=== PATIENT | female | born 1955 | race Caucasian/White ===

== ENCOUNTER 2017-12-13 16:44 | Emergency (ER) | payer BC ==
--- NOTE | 2017-12-13 16:59 | Emergency Department Record ---
History of Present Illness - General Chief Complaint: Dizziness Stated Complaint: HEAT EXHAUSTION, DIZZY Time Seen by Provider: 12/13/17 16:52 Source: Patient Mode of Arrival: Wheelchair Limitations: No limitations - History of Present Illness Initial Comments: The patient is here due to developing lightheadedness about 20 minutes prior to presenting to the ER. The patient was outside in the extreme heat for about 10- 15 minutes and was standing and then suddenly felt weak with lightheadedness and felt like she was going to pass out. She did not fall or hurt herself and also denied any CP or SOB or GARCIA. Her family then brought her to the ER for treatment. Presently she is feeling better. The patient denies any recent illnesses, fever, chills, vomiting, diarrhea, or AP. She presently is being treated for Lung CA and is receiving weekly chemo. Complaint: Lightheadedness Onset/Timin -: Minutes(s) Timing: Sudden onset Description: Lightheadedness, Nausea, Near-syncope History of Same: No History of Trauma: No Improves With: Nothing Worsens With: Nothing - [place] Coma Scale Eye Response: (4) Open spontaneously Motor Response: (6) Obeys commands Verbal Response: (5) Oriented [place] Total: 15 - Related Data Home Medications Medication Instructions Recorded Confirmed Last Taken Albuterol Sulfate [Proair Hfa] 1 - 2 puff IH .EVERY 4-6 HOURS PRN 12/13/1712/13 Unknown Aspirin Chewable 81 mg PO DAILY 12/13/17 12/13/17 Unknown Folic Acid 1 mg PO DAILY 12/13/17 12/13/17 Unknown Hydrochlorothiazide [Hctz] 12.5 mg PO DAILY 12/13/17 12/13/17 Unknown Naproxen Sodium [Aleve] 220 mg PO ASDIR 12/13/17 12/13/17 Unknown Ondansetron [Zofran Odt] 8 mg PO ASDIR 12/13/17 12/13/17 Unknown Oxycodone HCl/Acetaminophen 1 tab PO Q6H PRN 12/13/17 12/13/17 Unknown [Oxycodone/Acetaminophen 5mg/325mg] Prochlorperazine Maleate 10 mg PO ASDIR 12/13/17 12/13/17 Unknown [Compazine] Tiotropium Br/Olodaterol HCl 4 gm IH ASDIR 12/13/17 12/13/17 Unknown [Stiolto Respimat Inhal [place]] Previous Rx's Medication Instructions Recorded Potassium Chloride [Klor-Con] 20 meq PO DAILY #14 [email or web address] 12/13/17 Allergies Allergy/AdvReac Type Severity Reaction Status Date / Time iodine [IODINE] Allergy Severe HYPERSENSIT Verified 12/13/17 16:53 IVITY propoxyphene napsylate Allergy Severe HYPERSENSIT Verified 12/13/17 16:53 [From DARVOCET-N 100] IVITY Travel Screening - Travel/Exposure Within Last 30 Days Have you traveled within the last 30 days?: No Review of Systems Constitutional: Denies: Chills, Fever Eyes: Denies: Eye discharge ENT: Denies: Congestion Respiratory: Denies: Cough, Dyspnea Past Medical History - SOCIAL HISTORY Smoking Status: Former smoker Alcohol Use: None Drug Use: None - RESPIRATORY Hx Respiratory Disorders: Yes Comment:: lung CA - CARDIOVASCULAR Hx Cardio Disorders: Yes Hx Cardiac Cath: Yes Hx Hypertension: Yes Comment:: Anerysum - NEURO Hx Neuro Disorders: No - GI Hx GI Disorders: No - Hx Genitourinary Disorders: No - ENDOCRINE Hx Endocrine Disorders: No - MUSCULOSKELETAL Hx Musculoskeletal Disorders: Yes - PSYCH Hx Psych Problems: Yes Hx Anxiety: Yes - HEMATOLOGY/ONCOLOGY Hx Hematology/Oncology Disorders: Yes Hx Cancer: Yes (lung) Hx Chemotherapy: Yes Family Medical History Any Significant Family History?: Yes Hx Resp Disorders: Mother Physical Exam - General General Appearance: Alert, Oriented x3, Cooperative, No acute distress - Head Head exam: Atraumatic, Normocephalic, Normal inspection - Eye Eye exam: Normal appearance, PERRL - ENT Throat exam: Normal inspection. negative: Tonsillar erythema, Tonsillar exudate - Neck Neck exam: Normal inspection, Full ROM. negative: Tenderness - Respiratory Respiratory exam: Normal lung sounds bilaterally. negative: Respiratory distress - Cardiovascular Cardiovascular Exam: Regular rate, Normal rhythm, Normal heart sounds - GI/Abdominal GI/Abdominal exam: Soft, Normal bowel sounds. negative: Tenderness - Extremities Extremities exam: Normal inspection, Full ROM, Normal capillary refill. negative: Tenderness - Neurological Neurological exam: Alert, Normal gait. 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 She is resting comfortably in no pain or discomfort and is having no dizziness. I did explain to the patient that her workup is mostly normal except for some minor lab abnormalities and a mildly low potassium. I did recommend a short stay in the ER for further monitoring and repeat cardiac enzymes but the patient is refusing. The patient clearly wants to leave right now and is no longer willing to stay in the ER. I explained by leaving she could go home and have a stroke, [place], become disabled and . The patient understands and accepts the risks. Presently she has proper decision making capacity and understands we cannot be held liable for not monitoring the patient further. She is to see her doctors later this week for recheck and to return to the ER for any worsening symptoms. 12/13/17 18:07 Medical Decision Making - Data Complexity MDM Data: Labs Ordered and/or Reviewed, EKG Ordered and/or Reviewed - Lab Data Result diagrams: 12/13/17 16:57 12/13/17 16:57 - EKG Data -: EKG Interpreted by Me EKG: No Acute Changes, Normal EKG Disposition Disposition: Discharge Clinical Impression: Near syncope Disposition: Home, Self-Care Condition: (2) Stable Instructions: Dizziness (ED) Additional Instructions: Please drink plenty of fluids and add the oral potassium as directed. Please see your family doctor or Oncologist later this week for recheck. Return to the ER for any worsening symptoms. Prescriptions: Potassium Chloride [Klor-Con] 20 meq PO DAILY #14 [email or web address] Forms: Patient Portal Access Time of Disposition: 18:06 Quality - Quality Measures Quality Measures: N/A - Blood Pressure Screening View Details: Yes Does Patient Have Any of the Following: No Blood Pressure Classification: Normal BP Reading Systolic Measurement: 104 Diastolic Measurement: 75 Screening for High Blood Pressure: < Normal BP, F/U Not Required > [G8783]
[2017-12-13] MEDS: ONDANSETRON HCL IV 4 MG/2 ML VIAL IVP ONE (17:14)
[2017-12-13] MEDS: 0.9 % SODIUM CHLORIDE 1,000 ML BAG IV ONE (17:15)
[2017-12-13 17:19] LABS: HEMATOCRIT 29.9 % (35.0-47.0); HEMOGLOBIN 10.4 gm/dl (11.6-16.0); MEAN CELL VOLUME 98.4 fl (81-97); MEAN CORPUSCULAR HEMOGLOBIN 34.2 pg (27-33); MEAN CORPUSCULAR HGB CONC 34.8 g/dl (32-36); MEAN PLATELET VOLUME 10.2 fl (7.4-10.4); PLATELET COUNT 80 K/uL (130-400); RED BLOOD COUNT 3.04 M/uL (3.80-5.40); RED CELL DISTRIBUTION WIDTH 17.8 % (11.5-14.5); WHITE BLOOD COUNT W/O DIFF 5.8 K/uL (4.2-12.2)
[2017-12-13 17:31] LABS: BLOOD UREA NITROGEN 16 mg/dL (8-23); CREATININE 0.7 mg/dL (0.5-0.9); EST GLOMERULAR FILTRATION RATE > 60 mL/min; TOTAL PROTEIN 7.5 g/dL (6.6-8.7)
[2017-12-13 17:33] LABS: GLUCOSE,RANDOM 106 mg/dL (74-109)
[2017-12-13 17:36] LABS: ALB/GLOB RATIO 1.1 (1.1-1.8); ALKALINE PHOSPHATASE 100 U/L (35-104); ALT/SGPT 23 U/L (<33); AST/SGOT 30 U/L (10.0-35.0); CREATINE PHOSPHOKINASE 57 U/L (26-192)
[2017-12-13 17:38] LABS: CKMB < 1.0 ng/mL (<3.77)
[2017-12-13] MEDS: POTASSIUM CHLORIDE 20 MEQ TABLET PO ONE (17:44)
[2017-12-13] MEDS ORDERED: 0.9 % SODIUM CHLORIDE 1,000 ML BAG IV ONE (18:03)
== END 2017-12-13 18:16 | disposition home or self-care (01) ==
LOC: ER 16:44
DX: R55 Syncope and collapse (principal); R42 Dizziness and giddiness; Z87.891 Personal history of nicotine dependence; I10 Essential (primary) hypertension; E87.6 Hypokalemia
CPT/HCPCS: 80053; 82550; 82553; 84484; 85027; 93005; 93010; 96361; 96374; 99284; J2405; J7030

== ENCOUNTER 2018-03-03 15:47 | Emergency (ER) | payer BC ==
--- NOTE | 2018-03-03 16:09 | Emergency Department Record ---
History of Present Illness - General Chief Complaint: Bloody Sputum Stated Complaint: BLEEDING FROM HER LUNGS, CANCER Time Seen by Provider: 03/03/18 16:04 Source: Patient Mode of Arrival: Ambulatory Limitations: No limitations - History of Present Illness Initial comments: The patient is here due to coughing up blood today. She has a hx of a chronic cough due to Lung CA and is presently in the process of treatment for it. She has just finished her 11th XRT treatment for it and is going to start her 2nd round of chemo next week. The patient has had a chronic cough but it has been slightly worse recently. Now today she has had some blood sputum at times. There is no SOB, CHAPIS, CP or fever. Onset/Timin -: Days(s) - Related Data Previous Rx's Medication Instructions Recorded Potassium Chloride [Klor-Con] 20 meq PO DAILY #14 tab.prt.sr 12/13/17 Doxycycline Monohydrate [Mondoxyne 100 mg PO BID #14 capsule 03/03/18 Nl] Allergies Allergy/AdvReac Type Severity Reaction Status Date / Time iodine [IODINE] Allergy Severe HYPERSENSIT Verified 03/03/18 16:01 IVITY propoxyphene napsylate Allergy Severe HYPERSENSIT Verified 03/03/18 16:01 [From DARVOCET-N 100] IVITY Travel Screening - Travel/Exposure Within Last 30 Days Have you traveled within the last 30 days?: Yes Location Detail:: [place] - Travel/Exposure Within Last Year Have you traveled outside the [place] in the last year?: No - Additonal Travel Details Have you been exposed to anyone with a communicable illness?: No - Travel Symptoms Symptom Screening: None Review of Systems Constitutional: Denies: Chills, Fever Eyes: Denies: Eye discharge ENT: Denies: Congestion Respiratory: Reports: Cough. Denies: Dyspnea Cardiovascular: Denies: Arrhythmia, Chest pain Endocrine: Reports: Fatigue Gastrointestinal: Denies: Abdominal pain Genitourinary: Denies: Dysuria Musculoskeletal: Denies: Back pain Skin: Denies: Bruising Past Medical History - SOCIAL HISTORY Smoking Status: Current every day smoker Alcohol Use: None Drug Use: None - RESPIRATORY Hx Respiratory Disorders: Yes Comment:: lung CA - CARDIOVASCULAR Hx Cardio Disorders: Yes Hx Cardiac Cath: Yes Hx Hypertension: Yes Comment:: Anerysum - NEURO Hx Neuro Disorders: No - GI Hx GI Disorders: No - Hx Genitourinary Disorders: No - ENDOCRINE Hx Endocrine Disorders: No - MUSCULOSKELETAL Hx Musculoskeletal Disorders: Yes - PSYCH Hx Psych Problems: Yes Hx Anxiety: Yes - HEMATOLOGY/ONCOLOGY Hx Hematology/Oncology Disorders: Yes Hx Cancer: Yes (lung) Hx Chemotherapy: Yes Family Medical History Any Significant Family History?: No Hx Resp Disorders: Mother Physical Exam - General General Appearance: Alert, Oriented x3, Cooperative, No acute distress - Head Head exam: Atraumatic, Normocephalic, Normal inspection - Eye Eye exam: Normal appearance, PERRL, EOMI - ENT Throat exam: Normal inspection. negative: Tonsillar erythema, Tonsillar exudate - Neck Neck exam: Normal inspection, Full ROM. negative: Tenderness - Respiratory Respiratory exam: Normal lung sounds bilaterally. negative: Respiratory distress - Cardiovascular Cardiovascular Exam: Regular rate, Normal rhythm, Normal heart sounds - GI/Abdominal GI/Abdominal exam: Soft, Normal bowel sounds. negative: Tenderness - Extremities Extremities exam: Normal inspection, Full ROM, Normal capillary refill. negative: Tenderness - Neurological Neurological exam: Alert. negative: Motor sensory deficit Course Vital Signs 03/03/18 15:53 Temperature 97.8 F Pulse Rate 90 Respiratory 20 Rate Blood Pressure 108/74 Pulse Ox 99 - Reevaluation(s) Reevaluation #1: The patient is doing extremely well in the ED. She has not coughed any blood up and is resting comfortably with no Cp, SOB, or CHAPIS. Her CXR does still demonstrate bilateral tumors but they are improved from the last xray. I did discuss the case with Dr. Jey Avitia who is addiction therapist for the patient's Oncologist Dr. Clark. He and I both believe the slight blood in the sputum is due to the recent XRT and the multiple tumors. Since the patient is having NO CP, SOB, or CHAPIS and has a normal RA biox it is hard to believe she could be having any issues like a PE. We will place the patient on an oral Abx and she is to F/U with her Oncologist for further issues. 03/03/18 17:27 Medical Decision Making - Data Complexity MDM Data: Labs Ordered and/or Reviewed, X-Ray Ordered and/or Reviewed - Lab Data Result diagrams: 03/03/18 16:13 09/06/18 16:26 - Radiology Data Radiology results: Report reviewed (CXR: Bilateral lung tumors but improved since last CXR. Neg for acute process.) Disposition Disposition: Discharge Clinical Impression: Lung cancer Qualifiers: Laterality: unspecified laterality Lung location: unspecified part of lung Qualified Code(s): C34.90 - Malignant neoplasm of unspecified part of unspecified bronchus or lung Disposition: Home, Self-Care Condition: (2) Stable Instructions: Hemoptysis (ED) Additional Instructions: Please continue your regular medicines and please take the Doxycycline as directed. Please follow up with Dr. Clakr for any further issues. Please return to the ER for any worsening symptoms, pain, fever, or shortness of breath. Prescriptions: Doxycycline Monohydrate [Mondoxyne Nl] 100 mg PO BID #14 capsule Forms: Patient Portal Access Time of Disposition: 17:31 Quality - Quality Measures Quality Measures: N/A - Blood Pressure Screening View Details: Yes Does Patient Have Any of the Following: No Blood Pressure Classification: Normal BP Reading Systolic Measurement: 116 Diastolic Measurement: 68 Screening for High Blood Pressure: < Normal BP, F/U Not Required > [G8783]
[2018-03-03 16:32] LABS: HEMATOCRIT 32.6 % (35.0-47.0); HEMOGLOBIN 10.6 gm/dl (11.6-16.0); MEAN CELL VOLUME 107.9 fl (81-97); MEAN CORPUSCULAR HGB CONC 32.5 g/dl (32-36); MEAN PLATELET VOLUME 9.2 fl (7.4-10.4); PLATELET COUNT 185 K/uL (130-400); RED BLOOD COUNT 3.02 M/uL (3.80-5.40); RED CELL DISTRIBUTION WIDTH 15.7 % (11.5-14.5); WHITE BLOOD COUNT W/O DIFF 5.9 K/uL (4.2-12.2)
[2018-03-03 16:42] LABS: BLOOD UREA NITROGEN 17 mg/dL (8-23); CREATININE 0.6 mg/dL (0.5-0.9); EST GLOMERULAR FILTRATION RATE > 60 mL/min
[2018-03-03 16:45] LABS: GLUCOSE,RANDOM 115 mg/dL (74-109); PROTHROMBIN TIME (PATIENT) 10.2 SECONDS (9.5-12.1)
[2018-03-03 16:47] LABS: PLATELET ESTIMATE NORMAL (NORMAL)
== END 2018-03-03 17:41 | disposition home or self-care (01) ==
LOC: ER 15:47
DX: C34.90 Malignant neoplasm of unspecified part of unspecified bronchus or lung (principal); R04.2 Hemoptysis; R13.10 Dysphagia, unspecified; I10 Essential (primary) hypertension; F17.210 Nicotine dependence, cigarettes, uncomplicated
CPT/HCPCS: 71046; 80048; 85027; 85610; 85730; 99283; 99284

== ENCOUNTER 2018-11-15 08:37 | Emergency (ER) | payer MEDICARE, BC ==
[2018-11-15] MEDS ORDERED: ASPIRIN 81 MG CHEWABLE TABLET PO ONE (08:45)
[2018-11-15] MEDS ORDERED: NITROGLYCERIN 0.4MG SL TABLET #25 BTL SL PRN (08:45)
[2018-11-15 09:01] LABS: ABSOLUTE NEUTROPHIL COUNT 5.25; BASO % 0.4 % (0-6); EOS % 0.8 % (0-6); GRAN % 72.1 % (47-80); HEMATOCRIT 36.7 % (35.0-47.0); HEMOGLOBIN 12.4 gm/dl (11.6-16.0); LYMPH % 15.2 % (16-45); MEAN CELL VOLUME 96.3 fl (81-97); MEAN CORPUSCULAR HEMOGLOBIN 32.5 pg (27-33); MEAN CORPUSCULAR HGB CONC 33.8 g/dl (32-36); MEAN PLATELET VOLUME 8.7 fl (7.4-10.4); MONO % 11.5 % (0-9); PLATELET COUNT 311 K/uL (130-400); RED BLOOD COUNT 3.81 M/uL (3.80-5.40); RED CELL DISTRIBUTION WIDTH 16.3 % (11.5-14.5); WHITE BLOOD COUNT W/O DIFF 7.3 K/uL (4.2-12.2)
[2018-11-15 09:10] LABS: BLOOD UREA NITROGEN 15 mg/dL (8-23)
[2018-11-15 09:11] LABS: CREATININE 0.7 mg/dL (0.5-0.9); EST GLOMERULAR FILTRATION RATE > 60 mL/min
[2018-11-15 09:13] LABS: GLUCOSE,RANDOM 103 mg/dL (74-109)
[2018-11-15 09:16] LABS: ALB/GLOB RATIO 1.2 (1.1-1.8); ALBUMIN 3.8 g/dL (4.0-5.0); ALKALINE PHOSPHATASE 100 U/L (35-104); ALT/SGPT 11 U/L (<33); AST/SGOT 19 U/L (10.0-35.0); CREATINE PHOSPHOKINASE 48 U/L (26-192)
[2018-11-15 09:18] LABS: CKMB 1.2 ng/mL (<3.77)
--- NOTE | 2018-11-15 09:37 | Emergency Department Record ---
History of Present Illness - General Chief Complaint: Chest Pain Stated Complaint: CP SINCE WEDNESDAY Time Seen by Provider: 11/15/18 08:40 Source: Patient Mode of Arrival: Ambulatory Limitations: No limitations - History of Present Illness Initial Comments: pt has been having intermittent cp for 3 days. it gets better when she rests. it feels like the pain she had when she had one of her cardiac stents close. she is currently having no pain. MD Complaint: Chest pain Onset/Timin -: Days(s) Onset: During exertion, During rest Pain Location: Substernal Pain Radiation: None Consistency: Intermittent Improves With: Rest Worsens With: Exertion Context: Recent illness Anginal Symptoms: Nausea Treatments Prior to Arrival: None - Related Data Previous Rx's Medication Instructions Recorded Potassium Chloride [Klor-Con] 20 meq PO DAILY #14 tab.[email or web address] 12/13/17 Allergies Allergy/AdvReac Type Severity Reaction Status Date / Time iodine [IODINE] Allergy Severe HYPERSENSIT Verified 03/03/18 16:01 IVITY propoxyphene napsylate Allergy Severe HYPERSENSIT Verified 03/03/18 16:01 [From DARVOCET-N 100] IVITY Travel Screening - Travel/Exposure Within Last 30 Days Have you traveled within the last 30 days?: No Review of Systems Reviewed: No additional complaints except as noted below Constitutional: Reports: As per HPI. Denies: Chills, Fever, Malaise, Night sweats, Weakness, Weight change Eyes: Reports: As per HPI. Denies: Eye discharge, Eye pain, Photophobia, Vision change ENT: Reports: As per HPI. Denies: Congestion, Dental pain, Ear pain, Epistaxis, Hearing loss, Throat pain Respiratory: Reports: As per HPI. Denies: Cough, Dyspnea, Hemoptysis, Stridor, Wheezes Cardiovascular: Reports: As per HPI. Denies: Arrhythmia, Chest pain, Dyspnea on exertion, Edema, Murmurs, Orthopnea, Palpitations, Paroxysmal nocturnal dyspnea, Rheumatic Fever, Syncope Endocrine: Reports: As per HPI. Denies: Fatigue, Heat or cold intolerance, Polydipsia, Polyuria Gastrointestinal: Reports: As per HPI. Denies: Abdominal pain, Constipation, Diarrhea, Hematemesis, Hematochezia, Melena, Nausea, Vomiting Genitourinary: Reports: As per HPI. Denies: Abnormal menses, Discharge, Dyspareunia, Dysuria, Frequency, Hematuria, Incontinence, Retention, Urgency Musculoskeletal: Reports: As per HPI. Denies: Arthralgia, Back pain, Gout, J oint swelling, Myalgia, Neck pain Skin: Reports: As per HPI. Denies: Bruising, Change in color, Change in hair/nails, Lesions, Pruritus, Rash Neurological: Reports: As per HPI. Denies: Abnormal gait, Confusion, Headache, Numbness, Paresthesias, Seizure, Tingling, Tremors, Vertigo, Weakness Psychiatric: Reports: As per HPI. Denies: Anxiety, Auditory hallucinations, Depression, Homicidal thoughts, Suicidal thoughts, Visual hallucinations Hematological/Lymphatic: Reports: As per HPI. Denies: Anemia, Blood Clots, Easy bleeding, Easy bruising, Swollen glands Past Medical History - SOCIAL HISTORY Smoking Status: Current every day smoker - RESPIRATORY Hx Respiratory Disorders: Yes Comment:: lung CA - CARDIOVASCULAR Hx Cardio Disorders: Yes Hx Cardiac Cath: Yes Hx Hypertension: Yes Comment:: Anerysum - NEURO Hx Neuro Disorders: No - GI Hx GI Disorders: No - Hx Genitourinary Disorders: No - ENDOCRINE Hx Endocrine Disorders: No - MUSCULOSKELETAL Hx Musculoskeletal Disorders: Yes - PSYCH Hx Psych Problems: Yes Hx Anxiety: Yes - HEMATOLOGY/ONCOLOGY Hx Hematology/Oncology Disorders: Yes Hx Cancer: Yes (lung) Hx Chemotherapy: Yes Family Medical History Any Significant Family History?: Yes Hx Resp Disorders: Mother Physical Exam - General General Appearance: Alert, Oriented x3, Cooperative, Mild distress - Head Head exam: Normal inspection - Eye Eye exam: Normal appearance, PERRL, EOMI Pupils: Normal accommodation - ENT ENT exam: Normal exam, Mucous membranes moist, Normal external ear exam, Normal orophraynx Ear exam: Normal external inspection. negative: External canal tenderness Nasal Exam: Normal inspection. negative: Discharge, Sinus tenderness Mouth exam: Normal external inspection, Tongue normal Teeth exam: Normal inspection. negative: Dental caries Throat exam: Normal inspection. negative: Tonsillar erythema, Tonsillar exudate - Neck Neck exam: Normal inspection, Full ROM. negative: Tenderness - Respiratory Respiratory exam: Normal lung sounds bilaterally. negative: Respiratory distress - Cardiovascular Cardiovascular Exam: Regular rate, Normal rhythm, Normal heart sounds - GI/Abdominal GI/Abdominal exam: Soft, Normal bowel sounds. negative: Tenderness - Rectal Rectal exam: Deferred - exam: Deferred - Extremities Extremities exam: Normal inspection, Full ROM, Normal capillary refill. negative: Tenderness - Back Back exam: Reports: Normal inspection, Full ROM. Denies: Muscle spasm, Rash noted, Tenderness - Neurological Neurological exam: Alert, CN II-XII intact, Normal gait, Oriented X3 - Psychiatric Psychiatric exam: Normal affect, Normal mood - Skin Skin exam: Dry, Intact, Normal color, Warm Course Vital Signs 11/15/18 08:40 Temperature 97.5 F L Pulse Rate 82 Respiratory 20 Rate Blood Pressure 139/80 Pulse Ox 98 - Reevaluation(s) Reevaluation #1: 11/15/18 12:21 pt remained pain free. she states she is a pt of [facility] Medical Decision Making - Lab Data Result diagrams: 11/15/18 08:55 11/15/18 08:55 Lab Results 11/15/18 11/15/18 11/15/18 Range/Units 08:55 08:55 08:55 WBC 7.3 (4.2-12.2) K/uL RBC 3.81 (3.80-5.40) M/uL Hgb 12.4 (11.6-16.0) gm/dl Hct 36.7 (35.0-47.0) % MCV 96.3 (81-97) fl MCH 32.5 (27-33) pg MCHC 33.8 (32-36) g/dl RDW 16.3 H (11.5-14.5) % Plt Count 311 (130-400) K/uL MPV 8.7 (7.4-10.4) fl Gran % 72.1 (47-80) % Lymphocytes % 15.2 L (16-45) % Monocytes % 11.5 H (0-9) % Eosinophils % 0.8 (0-6) % Basophils % 0.4 (0-6) % Absolute Neutrophils 5.25 D-Dimer 1.63 H (0-0.59) mg/L FEU Sodium 139 (136-145) mmol/L Potassium 4.0 (3.4-4.5) mmol/L Chloride 102 (98-107) mmol/L Carbon Dioxide 25.0 (22-29) mmol/L Anion Gap 12.0 (7-16) BUN 15 (8-23) mg/dL Creatinine 0.7 (0.5-0.9) mg/dL Estimated GFR > 60 mL/min Random Glucose 103 (74-109) mg/dL Calcium 9.4 (8.8-10.2) mg/dL Total Bilirubin 0.20 (0.2-1.0) mg/dL AST 19 (10.0-35.0) U/L ALT 11 (<33) U/L Alkaline Phosphatase 100 (35-104) U/L Creatine Kinase 48 (26-192) U/L CK-MB (CK-2) 1.2 (<3.77) ng/mL Troponin T < 0.010 (0-0.010) ng/mL Total Protein 7.0 (6.6-8.7) g/dL Albumin 3.8 L (4.0-5.0) g/dL Globulin 3.2 (1.4-4.8) gm/dL Albumin/Globulin Ratio 1.2 (1.1-1.8) Disposition Disposition: Transfer Clinical Impression: Chest pain due to CAD Disposition: Acute Care Hospital Transfer Transfer To: [facility] Reason For Transfer: needs php programmer Accepting Physician: dr sigala Time Discussed w/Accepting Physician: 12:52 Forms: Patient Portal Access Quality - Quality Measures Quality Measures: N/A - Blood Pressure Screening Does Patient Have Any of the Following: No Blood Pressure Classification: Pre-Hypertensive BP Reading Systolic Measurement: 139 Diastolic Measurement: 80 Screening for High Blood Pressure: < Pre-Hypertensive BP, F/U Documented > [G8950] Pre-Hypertensive Follow-up Interventions: Follow-up with rescreen every year.
[2018-11-15] MEDS ORDERED: DIPHENHYDRAMINE HCL 50 MG/ML VIAL IVP ONE (10:37)
[2018-11-15] MEDS ORDERED: METHYLPREDNISOLONE PF 125MG/VIAL IVP ONE (10:37)
--- NOTE | 2018-11-17 08:38 | CT ANGIOGRAM REPORT ---
EXAM: CT ANGIOGRAM OF THE CHEST WITH POST PROCESSING HISTORY: LUNG CARCINOMA WITH CHEMOTHERAPY AND RADIATION THERAPY. CHEST PAIN FOR TWO DAYS. CARDIAC STENT HISTORY. ELEVATED D-DIMER. TECHNIQUE: Routine CT angiogram of the chest is performed utilizing a pulmonary embolus protocol with 70 ml of Omnipaque 350 utilized. Coronal and sagittal maximum intensity projection reformatted images are generated and reviewed. Comparison: No prior examination available for direct comparison at this time. FINDINGS: Opacification of the systemic arteries is satisfactory for interpretation. No luminal filling defect is demonstrated within the outflow tract, main arteries, lobar arteries, or proximal segmental arteries to suggest acute pulmonary embolic disease. The heart is mildly enlarged. No evidence of right heart strain. There is diffuse atherosclerotic calcification of the left coronary artery as well as right coronary artery. The thoracic aorta is diffusely atherosclerotic without focal aneurysmal dilatation though there is likely minor ulceration of plaque involving the descending thoracic aorta. No definite dissection though evaluation is somewhat limited by suboptimal opacification. No definite mediastinal adenopathy though there is subtle ill definite soft tissue density in the low paratracheal and AP window regions. This appears slightly more pronounced than on a PET CT examination from [facility] dated 09/19/18. There is apparent wall thickening of the mid to upper esophagus. This may just relate to incomplete distention though a mucosal abnormality is not excluded. The right thyroid lobe appears mildly prominent in size and somewhat lobulated. There is at least one small hypodense nodule questioned within the right thyroid lobe measuring 10 mm. There is redemonstration of confluent opacity within the posterior aspect of the right upper lobe consistent with malignancy and post obstructive pneumonia. This area measures 4.1 x 5.4 cm. This is unchanged or minimally progressed since the prior examination. Satellite nodules are again noted at the inferolateral margin of the mass. The mass is again noted to extend centrally to the posterior hilar region where it measures 2.6 x 2.2 cm. This does not appear grossly changed in the interval. There is again noted an extension of air from the bronchus intermedius to the anterior superior margin of this hilar mass. This is stable. Two masses are again noted within the left upper lobe. The more posteriorly superiorly located measures 2.6 x 3.4 cm. On the prior examination this measures 2.6 x 3.1 cm. More inferiorly is noted a somewhat bilobed mass measuring 4.1 x 2.1 cm. This appears slightly larger in the interval. Bilateral emphysema redemonstrated associated with biapical lung scarring. Mild air space disease within the lower lungs posteriorly likely relating to atelectasis or infiltrate. Two or three small nodules are noted in the posterior aspect of the right lower lobe. These were not as well seen on the prior PET CT examination. No pleural or pericardial effusion. The adrenal glands are not enlarged. No definite new lytic or blastic bone lesion. IMPRESSION: 1. NO CTA EVIDENCE OF ACUTE PULMONARY EMBOLIC DISEASE. 2. DIFFUSE ATHEROSCLEROSIS OF THE THORACIC AORTA WITHOUT ANEURYSMAL DILATATION NOR DEFINITE DISSECTION. SMALL PLAQUE ULCERATIONS ARE SUGGESTED WITHIN THE DESCENDING THORACIC AORTA. 3. MASS LIKE OPACITIES WITHIN THE UPPER LOBES WITH THAT ON THE RIGHT EXTENDING CENTRALLY TO INVOLVE THE POSTERIOR HILUM. THESE ARE CONSISTENT WITH KNOWN MALIGNANCY AND POST OBSTRUCTIVE PNEUMONIA. THE MORE INFERIOR OPACITY IN THE LEFT UPPER LOBE MEASURES SLIGHTLY LARGER THAN ON PRIOR PET CT EXAMINATION. THE OTHER MASSES ARE GROSSLY STABLE. 4. MULTIPLE SMALL SATELLITE NODULES IN THE RIGHT UPPER LOBE AND A COUPLE SMALL NODULES IN THE RIGHT LOWER LOBE. METASTATIC DISEASE IS CONSIDERED. 5. AIR SPACE OPACITIES IN THE DEPENDENT LOWER LUNGS MOST PRONOUNCED IN THE SUPERIOR SEGMENT OF THE LEFT LOBE CONSISTENT WITH ATELECTASIS OR LESS LIKELY INFILTRATE. JOB NUMBER: [id number] [facility]
== END 2018-11-15 15:58 | disposition short-term general hospital (02) ==
LOC: ER 08:37
DX: I25.119 Atherosclerotic heart disease of native coronary artery with unspecified angina pectoris (principal); R79.89 Other specified abnormal findings of blood chemistry; R11.0 Nausea; I10 Essential (primary) hypertension; C34.90 Malignant neoplasm of unspecified part of unspecified bronchus or lung; F17.210 Nicotine dependence, cigarettes, uncomplicated
CPT/HCPCS: 99285 ×2; 96374; 96375; 82550; 85025; 82553; 80053; 84484; 85379; 71275; 93005; 93010; Q9967; J1200; J2930